=== PATIENT | male | born 2005 ===

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

== ENCOUNTER 2025-10-10 12:05 | Day surgery (SDC) | payer OTHER ==
[2025-10-10] VITALS (19 sets, daily range): BP systolic 113–153; BP diastolic 54–96
[~2025-10-10] VITALS: Ht 193 cm; Wt 119.7 kg
[2025-10-10] MEDS ORDERED: Tranexamic Acid 100 ML IV SCH (12:30)
[2025-10-10] MEDS ORDERED: CeFAZolin Sodium 2,000 MG in NS 100 ML IV SCH (12:30)
[2025-10-10] MEDS ORDERED: FentaNYL Citrate 50 MCG/ML 2 ML Injection ONE ×3 (12:57→17:16)
[2025-10-10] MEDS ORDERED: Midazolam HCl 1MG / ML 2ML Vial ONE ×2 (12:58→13:22)
[2025-10-10] MEDS ORDERED: Phenylephrine HCl 100 MCG/ML-NS 10MLSYR (1MG/10ML) ONE (12:58)
[2025-10-10] MEDS ORDERED: HYDROmorphone HCl/Pf 1MG SYR IV PRN ×2 (13:20)
[2025-10-10] MEDS ORDERED: Albuterol 2.5 MG/3 ML VIAL INH PRN (13:20)
[2025-10-10] MEDS ORDERED: FentaNYL Citrate 50 MCG/ML 2 ML Injection IV PRN ×2 (13:20)
--- NOTE | 2025-10-10 13:21 | NUR ---
Ambulatory in Day Surgery. History, Chart, Medications and Allergies reviewed before start of procedure. Patient confirms NPO status and agrees with scheduled surgery. Patient States Post-Procedure ride home has been arranged.
[2025-10-10] MEDS ORDERED: Ondansetron HCl 2 MG / ML 2ML Vial IV PRN (13:25)
[2025-10-10] MEDS ORDERED: Metoclopramide HCl 5MG / ML 2ML Vial IV PRN (13:25)
[2025-10-10] MEDS ORDERED: Bupivacaine 0.5% W/EPI 1:200000 SDV 30 ML Vial ONE (13:28)
--- NOTE | 2025-10-10 13:33 | NUR ---
FEMORAL BLOCK TIME OUT PERFORMED WITH BUTMU @ 1326 START: 1329 END: 1332 VSS T/O PROCEDURE
[2025-10-10] MEDS ORDERED: EpiNEPhrine 1 MG/1 ML 1ML Vial ONE (14:00)
[2025-10-10] MEDS ORDERED: Bupivacaine 0.5% HCl 5 MG/ML 30MLVIAL ONE (14:00)
[2025-10-10] MEDS ORDERED: Ondansetron HCl 2 MG / ML 2ML Vial ONE ×2 (14:00→18:33)
[2025-10-10] MEDS ORDERED: Dexamethasone Sod Phos 10 MG/ML 1ML VIAL ONE (14:00)
[2025-10-10] MEDS ORDERED: Metoclopramide HCl 5MG / ML 2ML Vial ONE ×2 (14:00→18:42)
[2025-10-10] MEDS ORDERED: Rocuronium Bromide 10 MG/ML 5ML Injection IV ONE (14:00)
--- NOTE | 2025-10-10 14:43 | NUR ---
10/10/25 1443 Mia,Aleyda RIGHT FEMORAL BLOCK COMPLETED BY EDILSON MURILLO IN THE PREOPERATIVE SETTING.
[2025-10-10] MEDS ORDERED: HYDROmorphone HCl/Pf 1MG SYR ONE ×2 (15:31→16:15)
[2025-10-10] MEDS ORDERED: Sugammadex Sodium 200 MG/2ML SDV (100 MG/ML) ONE (16:22)
--- NOTE | 2025-10-10 19:36 | NUR ---
PT CONTINOUSLY CAN NOT MAINTAIN SATS GREATER THAN 88% WHEN FALLS ASLEEP. GAVE ANOTHER LITER OF LR PER DR SHAH. PT ABLE TO MAKE NEEDS KNWON. ALL OTHER VSS. ALL BELONINGS SENT TO ROOM 214 WITH PATIENT. WILL CONT 2LNC
--- NOTE | 2025-10-10 20:10 | NUR ---
ARRIVAL FROM PACU PT SLIDE TRANSFER TO 214 BED. ON 2L O2, SPO2 @98% ON O2. DENIES DYSPNEA, NAUSEA. MIN PAIN 11/11 TO R HIP. STATES HE STILL FEELS NUMB FROM KNEE UP. ABLE TO WIGGLE RLE TOES & FOOT, R HIP W/AQUACEL DRESSING C/D/I. PARENTS AT BEDSIDE. ORIENTED TO & CALL LIGHT.
--- NOTE | 2025-10-10 20:58 | NUR ---
SPO2 BEDSIDE RM SPO2 ALARMING @86-87% ON RA. PLACED PT BACK ON 1L O2 & SPO2 AT 97%. CONT PULSE OX PLACED BACK ON FINGER OF PT.
--- NOTE | 2025-10-10 22:39 | NUR ---
SHIFT SUMMARY/DC PTS FATHER DR CAMPA REMOVED O2 TO TRIAL PT OFF & MONITOR SPO2, SPO2 89-92% ON RA. PT WAS SNORING LOUDLY & FAMILY STATES HE DOES THIS ALL THE TIME & MAY NEED A SLEEP STUDY. MYSELF & [employer] CLERK GOT PT UP 2 ASSIST W/GB & FWW TO TRY TO AMBULATE. PT AMBULATED DOWN REESE & BACK TO BED, PT STILL REPORTS NUMBNESS TO R UPPER THIGH. REPORTS PAIN TO R THIGH 1/10. ABLE TO BEAR WEIGHT ON R LEG. HAS VOIDED 2x. AMBULATED. MIN PAIN. DENIES N/V, OR DYSPNEA. WENT OVER DC INSTRUCTIONS. PT & FAMILY REQUESTING TO DC HOME. PT LEFT FLOOR APPROX 2230, WHEELED OUT VIA W/C.
== END 2025-10-10 22:30 | disposition home or self-care (01) ==
LOC: ORSCMMR 12:05 → SURS 20:00 → ORSCMMR 22:30 → SURS 22:30
PROVIDERS: Orthopaedic Surgery Sports Medicine
PROC: 0QH604Z Insertion of Internal Fixation Device into Right Upper Femur, Open Approach (ICD-10-PCS; principal; 2025-10-10 14:00)
DX: M21.70 Unequal limb length (acquired), unspecified site (principal)
CPT/HCPCS: 73552; A9270; C1713; C1769; J0169; J0690; J1100; J1171; J2250; J2371; J2405; J2704; J2765; J3010; J7120